=== PATIENT | male | born 2005 ===

== ENCOUNTER 2025-03-21 12:07 | Outpatient (AMB) | payer OTHER, SELFPAY ==
--- OUTSIDE RECORDS SUMMARY | 2025-03-21 12:09 | XMS_ITS | Encounter Summary ---
Author Organization [facility] Address [address] [place] [address] Phone Care Team Providers Care Fine Dining Server Name Role Phone Maurice Law MD Primary Care Provider [phone] Encounter Details Date Type Department Care Team (Late st Contact Info) Description 09/09/2017 Conversion [facility]counter [facility] [id number] [place] [address] Maurice Law MD [address] [place] [address] Social History Tobacco Use Types Packs/Day Years Used Date Smoking Tobacco: Never Assessed Sex and Gender Information Value Date Recorded Sex Assigned at Not on file Legal Sex Male 6:20 PM EDT Gender Identity Not on file Sexual Orientation Not on file documented as of this encounter Plan of Treatment Not on file documented as of this encounter Visit Diagnoses Not on filedocumented in this encounter Care Teams Fine Dining Server Relationship Specialty Start Date End Date Maurice Law MD [address] [place] [address] PCP - General 08/29/17 documented as of this encounter
--- OUTSIDE RECORDS SUMMARY | 2025-03-21 12:09 | XMS_ITS | Clinical Summary ---
Author Organization [facility] Address [address] [place] [phone] Phone Care Team Providers Care Interventional Pain Physician Name Role Phone Maurice Law MD Primary Care Provider + [phone] Allergies No known active allergies Medications MULTIVITAMIN CHILDRENS PO Take by mouth. Ac tive EPINEPHrine 0.3 MG/0.3ML injection syringeIndicati ons:Allergic reaction, initial encounter Inject into muscle immediately for signs of anaphylaxis AND call 911. 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 Urticaria 11/15/2021 Overview (01/19/2022): Seen by Hat Blocker 01/12: changed to Tamie 180 mg and approved for Xolair therapy. Assessment & Plan (11/15/2021 3:42 PM EDT): To economic adviser due to chronic nature and unclear etiology. Allergic reaction 11/15/2021 Assessment & Plan (11/15/2021 3:42 PM EDT): Discussed using benadryl 25-50 mg; dad will give 50 mg. Will give prednisone 50 mg per day for 5 days. To economic adviser for evaluation, will ask staff to arrange. Gave script for epi-pen, dad is familiar with how do use one. To use for increase in lip swelling, difficulty breathing; and to call 911; ask has not progressed over past 2.5 hours will hold on epi-pen at this time. Other headache syndrome 11/15/2021 Assessment & Plan (11/15/2021 3:42 PM EDT): Gave note to wear hat at school to help deflect the overhead lights. Influenza vaccine refused 07/02/2019 Assessment & Plan (07/02/2019 1:07 PM EDT): Discussed reasons for influenza vaccination to include prevention of this potential serious infection. Resolved Problems Problem Noted Date Diagnosed Date Resolved Date Allergic rhinitis due to ani mal hair and dander 06/16/2010 07/02/2019 Immunizations Immunization Administration Dates Next Due DTaP 06/16/2010,2005 DTaP / Hep B / IPV 2005,2005, 006 Hep A, ped/adol 06/25/2017,06/12/2006 Hep B, ped/adol 2005 Hib (PRP-T) 08/28/2006, 6,2005,08/09 IPV 06/16/2010 Influenza, injectable, quadrivalent 04/04/2011,1 05/08/2009,01/16/2009 Influenza, injectable, triva lent, preservative free 02/29/2008,02/05/2007,05/07/2006,03/07 MMR 06/14/2009 MMRV 06/12/2006 Meningococcal Conj (Menactra) MCV4P 06/23/2016 Pneumococcal Conjugate 08/28/2006,2005,2005,08/09 Tdap 06/23/2016 Varicella 06/14/2009 Family History Medical History Relation Name Comments ADD / ADHD Father Hypertension Father Migraines Father No Known Problems Maternal Grandfather No Known Problems Maternal Grandmother Hypothyroidism Mother Migraines Mother Colon cancer Paternal Grandfather No Known Problems Paternal Grandmother Relation Name Status Comments Father Alive HTN, ADHD, migr stefan age: 40 Maternal Grandfather Alive healthy Maternal Grandmother Alive healthy Mother Alive hypothyroid, marco antonio dominguez age: 41 Other Alive Siblings: healt hy Paternal Grandfather Alive healthy Paternal Grandmother Alive healthy Social History Tobacco Use Types Packs/Day Years Used Date Smoking Tobacco: Never Assessed Hunger/Food Answer Date Recorded In the last 12 months, did y ou or your family ever eat less than you felt you should because there wasn't enough money for food? No 11/15/2021 Stable Housing Answer Date Recorded Are you worried that in the next 2 months you may not have stable housing? No 11/15/2021 Transportation Concerns Answer Date Rec orded In the last 12 months, have you or your family ever had to go without healthcare because you didn't have a way to get there? No 11/15/2021 Hazards in Home Answer Date Recorded Think about the place you li ve. Do you have problems with any of the following? Pests (mice or roaches), mold, no/not working smoke detectors, water leaks, no window guards. No 2021 Financing Utilities Answer Date Recorde d In the last 12 months, has t he electric, gas, oil, or water company threatened to shut off your services in your home? No 11/15/2021 Safety at Home Answer Date Recorded Are you or your family worried about feeling saf e in your home? No 11/15/2021 Outside Support Answer Date Recorded Do you feel that you need mo re support from other people or programs to help you care for yourself or your family? No 11/15/2021 Understanding Health Concerns Answer Da te Recorded Do you need help understandi ng your or your child's healthcare needs (diagnosis, medications, plan, etc.)? No 11/15/2021 Financing Health Concerns Answer Date R ecorded In the last 12 months, was t here a time when your child needed to see a doctor or get medications or supplies but could not because of cost? No 11/15/2021 Missing School or Work Answer Date Tom rded Did you or your child miss s chool or work because of a health problem that could have been avoided? No 11/15/2021 Sex and Gender Information Value Date Recorded Sex Assigned at Not on file Legal Sex Male 6:20 PM EDT Gender Identity Not on file Sexual Orientation Not on file Last Filed Vital Signs Vital Sign Reading Time Taken Comments Blood Pressure 122/66 11/15/2021 3:03 PM EDT Pulse 88 02/15/2015 12:00 AM EDT Temperature 37 C (98.6 F) 04/01/2020 3:15 PM EST Respiratory Rate - - Oxygen Saturation 99% 04/01/2020 3:15 PM EST Inhaled Oxygen Concentration - - Weight 81.7 kg (180 lb 2 oz) 11/15/2021 3:03 PM EDT Height 181.6 cm (5' 11.5 ) 11/15/2021 3:03 PM ED T Body Mass Index 24.77 11/15/2021 3:03 PM EDT Body Mass Index Percentile 86.30% 11/15/2021 3:0 3 PM EDT Growth Chart: [facility] (Boys, 2-2 0 Years) Plan of Treatment Health Maintenance Due Date Last Done Comments HPV Vaccines (1 - Male 3-dose series) 2020 Men B Vaccine (1 of 2 - Standard) 2021 Influenza Vaccines (#1) 2024 04/04/20 11, 03/08/2010, 01/16/2009, Additional history exists COVID-19 Vaccine ( - 2024- season) 2024 DTaP,Tdap,and Td Vaccines (6 - Td or Tdap) 06/23/2026 06/23/2016, 06/16/2010, 2005, Additional history exists Hepatitis B Vaccines Completed 2005, 2005, 2005, Additional history exists HIB Vaccines Completed 08/28/2006, 11/22, 2005, Additional history exists Pneumococcal Vaccine Completed 08/28/2006, 2005, 2005, Additional history exists MMR Vaccines Completed 06/14/2009, 06/12/2006 Varicella Vaccines Completed 06/14/2009, 06/12/2006 IPV Vaccines Completed 06/16/2010, 11/22, 2005, Additional history exists Meningococcal Vaccine Aged Out 06/23/2016 No emilio jeanette eligible based on patient's age to complete this topic Hepatitis A Vaccines Completed 06/25/2017, 06/12/19 07 Insurance [employer]BS BLUE CARD OUT OF STATE Care Teams Interventional Pain Physician Relationship Specialty Start Date End Date Maurice Law MD [address] [place], [place] [id number] PCP - General 08/29/17
--- OUTSIDE RECORDS SUMMARY | 2025-03-21 12:10 | XMS_ITS | Data Portability ---
Author Organization [facility] [id number] Address [address] [place] [address] Assessment No assessment recorded. Plan of Treatment Reminders Order Date Submit Date Provider Last Modified By Organization Details Last Modified Time Details Appointments None record ed. Lab None record ed. Referral None record ed. Procedures None record ed. Surgeries None record ed. Imaging None record ed. Medication Orders None record ed. Patient TargetsNo targets recorded. Patient InstructionsNo instructions recorded. Reason for Referral None Reported. Procedures Surgical History Date Name Laterality Status Provider Name and Address Organization Details Recorded Time [facility] PH[facility] completed [facility] 11/27/2023 13:28:36 Imaging Results None recorded. Procedure Notes None recorded. Medical Equipment None Reported. Vitals None Recorded Social History None recorded. Functional Status None recorded. Mental Status None recorded. Family History Nothing Reported. Medical History No medical history recorded. Past Encounters Encounter ID Performer Location Encounter Start Date Encounter Closed Date Diagnosis/Indication Diagnosis SNOMED-CT Code Diagnosis ICD10 Code Diagnosis IMO Codes Diagnosis Note [id number] [facility] [address] [place] [address] 10/05/2020 18:04:53 10/05/2020 20:06:11 [id number] [place] [id number] [address] [place] [address] 11/27/2023 12:20:43 11/27/2023 14:14:31 Head [employer] [facility] Marker license medical examination [id number] Z02.4 Physical examination 588 0005 Z02.4 Health Concerns Section Related Observation LastModified by Organization Detai ls LastModified Time None Recorded Concern Status LastModified by Organization Details LastModified Time None Recorded Advance Directives Directive None Recorded Payers Insurance Date Sequence Insurance Name Policy Number Policy Flynn Covered Member ID Flynn Member ID Guarantor Name 11/27/2023 PAY AT TOS Mary Downey OTHER OTHER Mary Downey 11/27/2023 OC-PAY AT TIME OF SERVICE 2022 Mary Dow[facility] OTHER [facility] 11/27/2023 1 LESLIE [id number] Nghia Downey [id number] Mary Downey
--- OUTSIDE RECORDS SUMMARY | 2025-03-21 12:10 | XMS_ITS | Encounter Summary ---
Author Organization [facility] Address [address] [place] [phone] Phone Care Team Providers Care Dispensing Lead Name Role Phone Maurice Law MD Primary Care Provider [phone] Encounter Details Date Type Department Care Team (Late st Contact Info) Description 06/14/2009 Documentation [facility] Family Medicine [address] [place], [place] [phone] Family Medicine, Physician [address] [place], [place] [phone] Social History Tobacco Use Types Packs/Day Years [...] on filedocumented in this encounter Care Teams Dispensing Lead Relationship Specialty Start Date End Date Maurice Law MD [address] [place] [address] PCP - General 08/29/17 documented as of this encounter
--- NOTE | 2025-03-21 12:26 | AM.OFFWIN_ITS ---
Intake Vital Signs 03/21/25 12:31 Height 6 ft 2 in Weight 82.1 kg BMI 23.2 BP 118/62 Blood Pressure Location Lt brachial Position Sitting Pulse 71 Pulse Source Pulse Oximeter Temp 97.4 F Temp Source Oral Pulse Oximetry (%) 98 Oxygen Delivery Method Room Air Intake Visit Reasons: EP Hives all over body Intake Note: Pt is here today c/o hives all over body: Flare ups Patient Tobacco Use Status: Never used Tobacco Allergies No Known Allergies Allergy (Verified 03/21/25 12:27) HPI HPI Comments History of Present Illness Details Chief Complaint: ?I?m getting hives all over my body.? History of Present Illness: 19-year-old male with no known past medi sharan history presents with a 3-week history of recurrent generalized urticaria/hives. Rash is worst on awakening, diminishes during the day, and flares again in the evening. Lesions involve the trunk (anterior and posterior), palms, hands, and feet. Episodes are pruritic; feet become swollen and ?really itchy,? especially after long workdays wearing tall boots while on his feet for ~10 hours. Individual flares may last several days to a week but have been continuous over the past 3 weeks without a fully clear interval. Prior episode 4?5 years ago was treated first with a short prednisone taper by his general engineer followed by a higher-dose, longer prednisone course through an full service supervisor, which resolved the hives until this current recurrence. Previous allergy testing (details unknown) and multiple antihistamine trials (including Xyzal) had variable benefit. He uses diphenhydramine (Benadryl) for symptom control but avoids daytime use due to drowsiness and is unsure of safe maximal dosing. No identifiable food triggers despite a food diary. Rash has occurred in summer heat and in winter, suggesting no strict seasonal pattern. Intermittent angioedema affecting periorbital area and oral mucosa reported. Denies sexual activity; provider discussed testing for syphilis given palmar involvement. No established primary care physician or wood machinist. 19-year-old male with recurrent generali zed urticaria. Problem #1: Recurrent urticaria with intermittent angioedema Assessment: 3-week flare of diffuse pruritic wheals involving trunk, palms, and feet; waxing/waning course; prior similar episode years ago responsive to higher-dose prednisone. No clear trigger identified. Differential discussed includes idiopathic urticaria, seasonal/temperature related urticaria, and infectious etiologies. Plan: * Prednisone 60 mg PO daily ? 5 days; counselled to dose in AM to limit insomnia. * Hydroxyzine (Atarax) 30 tablets prescribed; take 1 tablet nightly for 1?2 weeks to assess symptom control. Warned about sedation. * Patient has been using natural remedies such as witch danii and Epsom salt baths for symptom relief; advised that these may be continued as desired. * Monitor for facial/oral swelling or respiratory compromise; seek emergent care if these occur. * Follow-up: If no improvement after steroid course and hydroxyzine trial, or sooner if worsening, return for re-evaluation. Problem #2: Rule out syphilis (palmar rash) Assessment: Provider noted palmar involvement; atypical dermatologic presentations of syphilis discussed. Plan: * Patient ademently denies sexual activity (never has been sexually active) * No testing indicated [facility] Social History Patient Tobacco Use Status: Never used Tobacco Review of Systems Narrative Review of Systems: * Dermatologic: Positive for hives, pruritus, intermittent swelling of feet, prior angioedema of eyes/mouth. * Constitutional: Denies difficulty sleeping unless pruritus severe (reported), no other systemic symptoms discussed. * All other systems not specifically reviewed during today?s visit. Const All systems reviewed & are unremarkable except as noted in HPI and below Physical Exam Exam Exam: General: Alert, in no acute distress. Skin: Few faint, resolving urticarial wheals noted on trunk, UE, LE ; no active angioedema at time of exam. No additional exam findings documented. CV/Resp: CTA, RRR. Airway: patent Vital Signs: Last Vital Signs Temp 97.4 F 03/21/25 12:31 Pulse 71 03/21/25 12:31 BP 118/62 03/21/25 12:31 Pulse Ox 98 03/21/25 12:31 Oxygen Delivery Method Room Air 03/21/25 12:31 BMI result Body Mass Index 23.2 vss Assessment & Plan Assessment & Plan (1) Urticaria: Code(s): L50.9 - Urticaria, unspecified Plan Take your medications as prescribed. If you were prescribed antibiotics today, it is important that you take your medication to their entirety, do not skip any doses, do not finish them early. Follow-up with your primary care provider this week. Return to the emergency department with new or worsening symptoms. In case of emergency call 911 Medications: New hydroxyzine HCl 25 mg PO TID PRN 30 tabs 0RF itching prednisone 60 mg (3 x 20 mg) PO DAILY 15 tabs 0RF 5 days Coding Level of Care Code New Pt Level 3 (46714) Diagnoses Urticaria L50.9
[2025-03-21 12:31] VITALS: BP 118/62; PULSE 71; TEMP 36.3; O2SAT 98; BMI 23.2
== END 2025-03-21 13:03 | disposition home or self-care (01) ==
PROVIDERS: Visit Provider Physician Assistant
DX: L50.9 Urticaria, unspecified (principal)